=== PATIENT | male | born 1970 | race Caucasian/White ===

== ENCOUNTER 2017-08-20 20:20 | Emergency (ER) | payer OTHER ==
[~2017-08-20] VITALS: Ht 182.9 cm; Wt 95.0 kg
[2017-08-20 21:00] VITALS: BP 126/73
[2017-08-20] MEDS ORDERED: NORCO 5/3251 TABLET PO (21:58)
== END 2017-08-20 22:31 | disposition home or self-care (01) ==
LOC: EME 20:20
DX: S86.811A Strain of other muscle(s) and tendon(s) at lower leg level, right leg, initial encounter (principal); H10.219 Acute toxic conjunctivitis, unspecified eye; V86.95XA Unspecified occupant of 3- or 4- wheeled all-terrain vehicle (ATV) injured in nontraffic accident, initial encounter; Y93.29 Activity, other involving ice and snow
CPT/HCPCS: 73564; 99281; 99284